=== PATIENT | female | born 1975 | race Caucasian/White ===

== ENCOUNTER 2016-12-01 22:21 | Observation (INO) | payer OTHER ==
[~2016-12-01] VITALS: Ht 152.4 cm; Wt 132.9 kg
[~2016-12-01 22:21] MED LIST: ALBUTEROL2 PUFFS/17 IN; AMOXICILLIN 50500 MG PO; AZITHROMYCIN250 MG PO; BACTRIM DS 8001 TA1 PO; BACTRIM DS 8001 TAB PO; BACTROBAN2% TP; CRESTOR20 MG PO; HYDROCHLOROTH12.5 M1 PO; HYDROCODONE1 TABLET PO; KEFLEX 500MG.500 MG PO; LEVOTHYROXINE0.2 M2 PO; LORTAB 5/500 501 TAB PO; PHENERGAN 25MG.25 M1 PO; SYNTHROID 0.0.125 MG PO; TESSALON PERLE100 MG PO; ULTRAM 50 MG TA50 MG PO; ULTRAM100 MG PO; VICODIN 5/500 T1 TAB PO
[2016-12-01 22:22] VITALS: BP 162/103
[2016-12-01 23:11] LABS: HEMOGLOBIN 11.2 g/dL (12.2-16.2); LYMPH # 2.3 K/mm3 (0.7-4.5); LYMPH % 30.2 % (10-50.0)
[2016-12-01 23:14] LABS: URINE BILIRUBIN - DIPSTICK NEGATIVE (NEG); URINE BLOOD NEGATIVE (NEG)
[2016-12-01 23:23] LABS: AMPHETAMINES/METAMPHETAMINES NEGATIVE ng/mL (<1000)
[2016-12-01 23:35] LABS: BUN 10 mg/dL (7-18)
[2016-12-01 23:38] LABS: GFR (ESTIMATED) 79 ML/MIN (59-)
[2016-12-02 00:29] LABS: VENOUS ABE -2.8 MMOL/L (-2.4-2.3); VENOUS TCO2 25.5 MMOL/L (23-27)
--- NOTE | 2016-12-02 00:37 | Emergency Room Report ---
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 BLOOD PRESSURE HIGH. 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 N Clinical Suspician of Infection? N Mental Status: 1 - Regular (Normal Baseline) Sepsis Risk:Low Sepsis Risk Have you (or family members/close friends) recently traveled outside the [place]? N If Yes, where/when: Have you had exposure to infectious disease within the past month? N TB? Other? Specify: Source RN notes reviewed, family, RN/MD Exam Limitations clinical condition Comment This is a 40-year-old lady brought in the ER by EMS with multiple and various complaints. Around noon time she advised her mother that she did not feel good, her legs were hurting and swollen. The patient started also complaining with left upper extremity pain, and shortly afterwards, while still talking to her mother, she "went out" (had a syncopal episode). Her LEFT upper extremity pain subsided gradually after worse. Approximately one hour prior to arrival the patient had another episode of LEFT upper extremity pain, and shortly afterward she passed out again (2nd time). Mother called the ambulance at this point. BP was 220/110 at home (per EMS), and, as she was still complaining with pain in the left arm, EMS gave her one SL Nitro. They also gave her a DuoNeb as she was "short of breath". Upon arrival to the emergency room the patient's chest pain appears completely resolved, responding to the sublingual nitroglycerin (given by EMS). She is able to answer all questions appropriately, appears alert and oriented x3, without any focal neurological deficit. FSBS is 220 upon arrival. While being taken to the bathroom in a wheelchair, she had another syncopal episode (3rd), witnessed by the staff. The patient was taken back to the examination room shortly afterwards. 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 She is currently on metformin 500 mg 2x/day and levothyroxine. Mother denies any previous, similar, episodes in the past, denies any previous cardiac history. Towards the end of my evaluation the patient appears slightly more somnolent. She has a history of hives (unable to give her ASA). 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 No Angina: Yes PA: No Hypertension? Yes Hyperlipidemia? Yes CHF? No DVT? No PE? No COPD? No Asthma? No Anemia? No GERD? No Gastric ulcers? No GI Bleed? No Hernia? No Thyroid Problems? Yes Hypothyroidism? Yes CVA? No Seizures? No Diabetes? No Renal Insuffiency? No End Stage Renal Disease? No UTI? Yes Stones? Yes BPH? No GB Disease: No Nephritic Syndrome? No Asplenia? No Hepatitis? No Sickle Cell Disease? No Arthritis? No Migraines? Yes Cataracts? No Glaucoma? No MRSA? No HIV? No TB? No Anxiety? Yes Depression? Yes Cancer? 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 MIXER Hx LMP 1-6 Days Ago Family History Family Hx Diabetes Yes CAD Yes Hypertension Yes Hyperlipidemia Yes Cancer Yes TB No Social History Smoking Hx Smoker: Current Every Day Smoker Tobacco: Yes Type Cigarettes Packs/day < 1 Pack Alcohol Alcohol: No Review of Systems All Other Systems Reviewed and Negative Cardiovascular chest pain Musculoskeletal see HPI, muscle pain (LEFT arm pain) Psychiatric/Neurological other (syncope) Physical Exam Vital Signs Vital Signs Date Time Temp Pulse Resp B/P Pulse O2 O2 Flow FiO2 Ox Delivery Rate 12/02 0108 99.1 122 22 164/109 99 2 12/02 0107 99.1 122 22 164/109 99 2 12/02 0028 99.1 122 22 164/109 99 2 12/01 2328 93 16 143/103 99 2 12/01 2308 109 174/90 12/01 2307 106 165/88 12/01 2222 98.8 111 16 162/103 97 General Appearance normal appearance, WD/WN, mild distress Eye Exam - bilateral eye normal exam, bilateral eye PERRL, bilateral eye EOMI, bilateral eye other (normal fundi) Ear, Nose, Throat hearing grossly normal, normal ENT inspection, normal pharynx Neck normal inspection, non-tender, supple, no meningeal signs Respiratory Status Yes: trachea midline, chest symmetrical. No: respiratory distress. Lung Sounds bilateral: normal breath sounds, lungs clear. 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 Yes NIH STROKE SCORE NIH STROKE SCORE Response Value 1a.Level of Consciousness ALERT 0 1b.LOC Questions ANSWERS BOTH CORRECTLY 0 1c.LOC Commands OBEYS BOTH CORRECTLY 0 2 .Best Gaze NORMAL 0 3 .Visual NO VISUAL LOSS 0 4 .Facial Palsy NORMAL 0 5a.Motor Arm Left NO DRIFT 0 5b.Motor Arm Right NO DRIFT 0 6a.Motor Leg Left NO DRIFT 0 6b.Motor Leg Right NO DRIFT 0 7 .Limb Ataxia ABSENT 0 8 .Sensory NORMAL 0 9 .Best Language NO APHASIA 0 10.Dysarthria NORMAL ARTICULATION 0 ED.NIH11 NO NEGLECT 0 Total 0 Treatment Consideration t-PA ordered? No (not medically necessary) Medical Decision Making LABS/Meds/Orders Pt receiving controlled substance in ED? No Comment 00:35 - case d/w Dr Bonds, covering for Dr Castillo, advised of the patient's presentation and findings, agreeable with admission. I will write temporary admission orders, per hospital protocol. Upon patient's arrival to the floor the unit nurse will contact dr. Bonds in order to obtain a full inpatient admission orders. Care transferred to Dr Bonds at this time. DDx: cardiac syncope, vasovagal syncope, hypoglycemia, possible neurocardiogenic syncope, arrythmia, neurological event, etc. The patient appears stable at time of admission, with no new complaints, chest pain free, without any neurological deficits. Results/Orders Laboratory Tests 12/02/16 0028: VBG pH 7.28 L, VBG Total CO2 25.5, VBG O2 Sat (Calc) 91.0 H, VBG Base Excess - 2.8 L, Mixed VBG pCO2 51.9 H, Mixed VBG pO2 67.7 H, Mixed VBG HCO3 24.0 12/02/16 0000: TSH 0.56, Free T4 Index 12.0, Thyroxine (T4) 13.4 H, T3 Uptake 36, Salicylates 2.7 L, Acetaminophen 0 L, Alcohols 0 12/01/16 2345: Lactic Acid 1.8 12/01/16 2255: Opiates Screen NEGATIVE, Urine Methadone Screen NEGATIVE, Barbiturates NEGATIVE, Phencyclidine Screen NEGATIVE, Amphetamines Screen NEGATIVE, Benzodiazepines Screen NEGATIVE, Cocaine Screen NEGATIVE, Marijuana (THC) Screen NEGATIVE, Urine Color YELLOW, Urine Appearance CLEAR, Urine pH 5.5, Ur Specific [place] <= 1.005 , Urine Protein NEGATIVE, Urine Ketones NEGATIVE, Urine Blood NEGATIVE, Urine Nitrate NEGATIVE, Urine Bilirubin NEGATIVE, Urine Urobilinogen 0.2, Ur Leukocyte Esterase NEGATIVE, Urine RBC NONE, Urine WBC NONE, Ur Squamous Epith Cells NONE, Urine Bacteria NONE, Urine Glucose 2+ H 12/01/16 2250: POC Glucose 220 H 12/01/16 2215: Sodium 138, Potassium 3.7, Chloride 103, Carbon Dioxide 27, BUN 10, Creatinine 0.8, Estimated Creat Clear 190, Estimated GFR (MDRD) 79, Glucose 232 H, Calcium 8.2 L, Total Bilirubin 0.3, AST 82 H, ALT 101 H, Alkaline Phosphatase 88, Creatine Kinase 51, CK-MB (CK-2) Rel Index 1.0, CK and CKMB Interp < 0.5, Troponin I < 0.02, B-Natriuretic Peptide 20, Total Protein 7.2, Albumin 3.2 L, Globulin 4.0 H, Albumin/Globulin Ratio 0.8 L, PT 10.7, INR 0.99, APTT 26.6, D- Dimer 145, WBC 7.7, RBC 4.87, Hgb 11.2 L, Hct 37.2, MCV 76.5 L, RDW 16.6, Plt Count 309, MPV 9.0, Gran % 59.1, Gran # 4.5, Lymphocytes % 30.2, Monocytes % 5.1 , Eosinophils % 4.8, Basophils % 0.9, Lymphocytes # 2.3, Monocytes # 0.4, Eosinophils # 0.4, Basophils # 0.1, PUBS MCHC 30.1 L, MCH 23.0 L Current Medication Orders Sig/Debra Start time Last Medication Dose Route Stop Time Status Admin Diagnostic Test (Pha) 1 EACH W/MEALS&HS 12/02 07 UNV FS 01/31 0659 Insulin Human [rDNA See Dose W/MEALS&HS 12/02 07 UNV origin] Insts (1) SC Meclizine HCl 50 MG ONCE ONE 12/02 0015 DC PO 12/02 0016 Aspirin 325 MG ONCE ONE 12/01 2245 CANr PO 12/01 2245 Naloxone HCl 2 MG ONCE ONE 12/01 2245 DC 12/01 IV 12/01 2245 2250 Nitroglycerin 0.4 MG [id number] PRN 12/01 224 AC SL Sodium Chloride 10 ML PRN PRN 12/01 224 AC IV 12/02 224 Naloxone HCl 0 .STK-MED ONE 12/01 2242 DC .ROUTE Dose Instructions: (1)Insulin Human [rDNA origin]: SEE ADMIN CRITERIA FOR LOW INTENSITY SS Orders Procedure Date/time Status DIET-2000 CALORIE ADA 12/02 B Active COMPLETE METABOLIC PANEL 12/02 599 Active CBC WITH AUTO DIFF 12/02 06 Active CARDIAC ENZYMES 12/02 06 Active D-DIMER 12/02 0043 Complete BRAIN NATRIURETIC PEPTIDE 12/02 0043 Complete CARDIAC ENZYMES 12/02 0040 Complete SALICYLATE 12/02 0036 Complete ALCOHOL 12/02 0036 Complete Acetaminophen 12/02 0036 Complete Decision to admit 12/02 0036 Active FREE T4 12/02 0034 Active FREE T3 12/02 003 Active THYROID PANEL 2 (WITH TSH) 12/02 0024 Complete ADMIT PATIENT 12/02 UNK Active PULSE OXIMETRY REQUEST 12/02 UNK Active VITAL SIGNS 12/02 UNK Active SALES REP 12/02 UNK Active POM NURSE BREANNE HOSE ORDER 12/02 UNK Active CODE STATUS 12/02 UNK Active PATIENT ACTIVITY ORDER 12/02 UNK Active Neuro Status, Assess 12/02 UNK Active ARTERIAL BLOOD GAS REQUEST 12/01 2348 Active CULTURE, BLOOD 12/01 2310 Active LACTIC ACID 12/01 2310 Complete ORTHOSTATIC B/P 12/[address] HEAD W/O CONTRAST 12/01 225 Active FINGERSTICK BLOOD SUGAR 12/01 225 Complete URINARY CATHETER INSERT 12/[address] HEAD REQ 12/01 224 Active URINALYSIS/COMPLETE 12/01 2242 Complete FSBS REQUEST BY CARE AREA 12/01 2242 Active DRUG ABUSE SCREEN (10) 12/01 2242 Complete ELECTROCARDIOGRAM REQUEST 12/01 2241 Active CHEST-PORTABLE 12/01 224 Active IV SALINE LOCK 12/[address] DESIGN ENGINEER 12/012 Active PARTIAL THROMBOPLASTIN TIME 12/01 224 Complete PROTHROMBIN TIME 12/01 2242 Complete D-DIMER 12/01 2241 Complete COMPLETE METABOLIC PANEL 12/01 2241 Complete CBC WITH AUTO DIFF 12/012 Complete CARDIAC ENZYMES 12/01 2241 Complete BRAIN NATRIURETIC PEPTIDE 12/01 2241 Complete 12 LEAD EKG-PAM (INITIAL) 12/01 UNK Active 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 of ischemic chgs, no ectopy, no EKG for comparison, non-spec. ST/Twave chgs, ST elevation, ST depression, LBBB, RBBB, ectopy, abnormal Q waves XRAY/CT/US XRAY/CT/US [address] interpretation by discussed w/radiologist Time results known: 2342 CT Results no acute intracranial hemorrhage, no acute brain abnormalities demonstrated - Dr Destiney Robison (see report) XRAY/CT/US 2 XRAY chest XR interpretation by reviewed by me Xray Results no infiltrates, normal lung inflation kaye, mild cardiomegaly Departure Departure Time of Disposition 0041 Disposition Still a Patient Clinical Impression Primary Impression: Syncope Qualifiers: Syncope type: heat syncope Encounter type: initial encounter Qualified Code: T67.1XXA - Heat syncope, initial encounter Secondary Impressions: Chest pain Qualifiers: Chest pain type: unspecified Qualified Code: R07.9 - Chest pain, unspecified Condition STABLE ED [place] [address]10
--- NOTE | 2016-12-02 00:37 | Emergency Room Report ---
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 BLOOD PRESSURE HIGH. 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 N Clinical Suspician of Infection? N Mental Status: 1 - Regular (Normal Baseline) Sepsis Risk:Low Sepsis Risk Have you (or family members/close friends) recently traveled outside the [place]? N If Yes, where/when: Have you had exposure to infectious disease within the past month? N TB? Other? Specify: Source RN notes reviewed, family, RN/MD Exam Limitations clinical condition Comment This is a 40-year-old lady brought in the ER by EMS with multiple and various complaints. Around noon time she advised her mother that she did not feel good, her legs were hurting and swollen. The patient started also complaining with left upper extremity pain, and shortly afterwards, while still talking to her mother, she "went out" (had a syncopal episode). Her LEFT upper extremity pain subsided gradually after worse. Approximately one hour prior to arrival the patient had another episode of LEFT upper extremity pain, and shortly afterward she passed out again (2nd time). Mother called the ambulance at this point. BP was 220/110 at home (per EMS), and, as she was still complaining with pain in the left arm, EMS gave her one SL Nitro. They also gave her a DuoNeb as she was "short of breath". Upon arrival to the emergency room the patient's chest pain appears completely resolved, responding to the sublingual nitroglycerin (given by EMS). She is able to answer all questions appropriately, appears alert and oriented x3, without any focal neurological deficit. FSBS is 220 upon arrival. While being taken to the bathroom in a wheelchair, she had another syncopal episode (3rd), witnessed by the staff. The patient was taken back to the examination room shortly afterwards. 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 She is currently on metformin 500 mg 2x/day and levothyroxine. Mother denies any previous, similar, episodes in the past, denies any previous cardiac history. Towards the end of my evaluation the patient appears slightly more somnolent. She has a history of hives (unable to give her ASA). 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 No Angina: Yes NH: No Hypertension? Yes Hyperlipidemia? Yes CHF? No DVT? No PE? No COPD? No Asthma? No Anemia? No GERD? No Gastric ulcers? No GI Bleed? No Hernia? No Thyroid Problems? Yes Hypothyroidism? Yes CVA? No Seizures? No Diabetes? No Renal Insuffiency? No End Stage Renal Disease? No UTI? Yes Stones? Yes BPH? No GB Disease: No Nephritic Syndrome? No Asplenia? No Hepatitis? No Sickle Cell Disease? No Arthritis? No Migraines? Yes Cataracts? No Glaucoma? No MRSA? No HIV? No TB? No Anxiety? Yes Depression? Yes Cancer? No Immunization Hx DT/Tetanus 5-10 YRS Surgical Hx Previous Surgery?N BIOANALYST Hx LMP 1-6 Days Ago Family History Family Hx Diabetes Yes CAD Yes Hypertension Yes Hyperlipidemia Yes Cancer Yes TB No Social History Smoking Hx Smoker: Current Every Day Smoker Tobacco: Yes Type Cigarettes Packs/day < 1 Pack Alcohol Alcohol: No Review of Systems All Other Systems Reviewed and Negative Cardiovascular chest pain Musculoskeletal see HPI, muscle pain (LEFT arm pain) Psychiatric/Neurological other (syncope) Physical Exam Vital Signs Vital Signs Date Time Temp Pulse Resp B/P Pulse O2 O2 Flow FiO2 Ox Delivery Rate 12/02 0108 99.1 122 22 164/109 99 2 12/02 0107 99.1 122 22 164/109 99 2 12/02 0028 99.1 122 22 164/109 99 2 12/01 2328 93 16 143/103 99 2 12/01 2308 109 174/90 12/01 2307 106 165/88 12/01 2222 98.8 111 16 162/103 97 General Appearance normal appearance, WD/WN, mild distress Eye Exam - bilateral eye normal exam, bilateral eye PERRL, bilateral eye EOMI, bilateral eye other (normal fundi) Ear, Nose, Throat hearing grossly normal, normal ENT inspection, normal pharynx Neck normal inspection, non-tender, supple, no meningeal signs Respiratory Status Yes: trachea midline, chest symmetrical. No: respiratory distress. Lung Sounds bilateral: normal breath sounds, lungs clear. Cardiovascular normal exam, normal peripheral pulses, tachycardia (HR 117), trace peripheral edema Peripheral Pulses Pulses normal Yes Gastrointestinal normal bowel sounds, normal exam, non tender Extremities non-tender, normal range of motion, normal inspection Strength 4 Upper Ext (L), 4 Upper Ext (R), 4 Lower Ext (L), 4 Lower Ext (R) Neurologic alert, equipment monitor phototypesetting II-XII nml as tested, normal exam, no motor/sensory deficits, oriented x 3 Glascow Coma Scale Glascow Coma Scale Response Value EYE response: 4 Spontaneously 4 MOTOR response: 6 OBEYS 6 VERBAL response: 5 Oriented & Converses 5 Total 15 Reflexes Reflexes normal Yes Mental status depressed affect Skin intact, normal color, warm/dry Stroke Score/Tx Stroke Evaluation Initial symptoms indicative of possible stroke? Yes NIH STROKE SCORE NIH STROKE SCORE Response Value 1a.Level of Consciousness ALERT 0 1b.LOC Questions ANSWERS BOTH CORRECTLY 0 1c.LOC Commands OBEYS BOTH CORRECTLY 0 2 .Best Gaze NORMAL 0 3 .Visual NO VISUAL LOSS 0 4 .Facial Palsy NORMAL 0 5a.Motor Arm Left NO DRIFT 0 5b.Motor Arm Right NO DRIFT 0 6a.Motor Leg Left NO DRIFT 0 6b.Motor Leg Right NO DRIFT 0 7 .Limb Ataxia ABSENT 0 8 .Sensory NORMAL 0 9 .Best Language NO APHASIA 0 10.Dysarthria NORMAL ARTICULATION 0 ED.NIH11 NO NEGLECT 0 Total 0 Treatment Consideration t-PA ordered? No (not medically necessary) Medical Decision Making LABS/Meds/Orders Pt receiving controlled substance in ED? No Comment 00:35 - case d/w Dr Bonds, covering for Dr Castillo, advised of the patient's presentation and findings, agreeable with admission. I will write temporary admission orders, per hospital protocol. Upon patient's arrival to the floor the unit nurse will contact dr. Bonds in order to obtain a full inpatient admission orders. Care transferred to Dr Bonds at this time. DDx: cardiac syncope, vasovagal syncope, hypoglycemia, possible neurocardiogenic syncope, arrythmia, neurological event, etc. The patient appears stable at time of admission, with no new complaints, chest pain free, without any neurological deficits. Results/Orders Laboratory Tests 12/02/16 0028: VBG pH 7.28 L, VBG Total CO2 25.5, VBG O2 Sat (Calc) 91.0 H, VBG Base Excess - 2.8 L, Mixed VBG pCO2 51.9 H, Mixed VBG pO2 67.7 H, Mixed VBG HCO3 24.0 12/02/16 0000: TSH 0.56, Free T4 Index 12.0, Thyroxine (T4) 13.4 H, T3 Uptake 36, Salicylates 2.7 L, Acetaminophen 0 L, Alcohols 0 12/01/16 2345: Lactic Acid 1.8 12/01/16 2255: Opiates Screen NEGATIVE, Urine Methadone Screen NEGATIVE, Barbiturates NEGATIVE, Phencyclidine Screen NEGATIVE, Amphetamines Screen NEGATIVE, Benzodiazepines Screen NEGATIVE, Cocaine Screen NEGATIVE, Marijuana (THC) Screen NEGATIVE, Urine Color YELLOW, Urine Appearance CLEAR, Urine pH 5.5, Ur Specific [place] <= 1.005 , Urine Protein NEGATIVE, Urine Ketones NEGATIVE, Urine Blood NEGATIVE, Urine Nitrate NEGATIVE, Urine Bilirubin NEGATIVE, Urine Urobilinogen 0.2, Ur Leukocyte Esterase NEGATIVE, Urine RBC NONE, Urine WBC NONE, Ur Squamous Epith Cells NONE, Urine Bacteria NONE, Urine Glucose 2+ H 12/01/16 2250: POC Glucose 220 H 12/01/16 2215: Sodium 138, Potassium 3.7, Chloride 103, Carbon Dioxide 27, BUN 10, Creatinine 0.8, Estimated Creat Clear 190, Estimated GFR (MDRD) 79, Glucose 232 H, Calcium 8.2 L, Total Bilirubin 0.3, AST 82 H, ALT 101 H, Alkaline Phosphatase 88, Creatine Kinase 51, CK-MB (CK-2) Rel Index 1.0, CK and CKMB Interp < 0.5, Troponin I < 0.02, B-Natriuretic Peptide 20, Total Protein 7.2, Albumin 3.2 L, Globulin 4.0 H, Albumin/Globulin Ratio 0.8 L, PT 10.7, INR 0.99, APTT 26.6, D- Dimer 145, WBC 7.7, RBC 4.87, Hgb 11.2 L, Hct 37.2, MCV 76.5 L, RDW 16.6, Plt Count 309, MPV 9.0, Gran % 59.1, Gran # 4.5, Lymphocytes % 30.2, Monocytes % 5.1 , Eosinophils % 4.8, Basophils % 0.9, Lymphocytes # 2.3, Monocytes # 0.4, Eosinophils # 0.4, Basophils # 0.1, PUBS MCHC 30.1 L, MCH 23.0 L Current Medication Orders Sig/Debra Start time Last Medication Dose Route Stop Time Status Admin Diagnostic Test (Pha) 1 EACH W/MEALS&HS 12/02 07 UNV FS 01/31 0659 Insulin Human [rDNA See Dose W/MEALS&HS 12/02 07 UNV origin] Insts (1) SC Meclizine HCl 50 MG ONCE ONE 12/02 0015 DC PO 12/02 0016 Aspirin 325 MG ONCE ONE 12/01 2245 CANr PO 12/01 2245 Naloxone HCl 2 MG ONCE ONE 12/01 2245 DC 12/01 IV 12/01 2245 2250 Nitroglycerin 0.4 MG [id number] PRN 12/01 224 AC SL Sodium Chloride 10 ML PRN PRN 12/01 224 AC IV 12/02 224 Naloxone HCl 0 .STK-MED ONE 12/01 2242 DC .ROUTE Dose Instructions: (1)Insulin Human [rDNA origin]: SEE ADMIN CRITERIA FOR LOW INTENSITY SS Orders Procedure Date/time Status DIET-2000 CALORIE ADA 12/02 B Active COMPLETE METABOLIC PANEL 12/02 599 Active CBC WITH AUTO DIFF 12/02 06 Active CARDIAC ENZYMES 12/02 06 Active D-DIMER 12/02 0043 Complete BRAIN NATRIURETIC PEPTIDE 12/02 0043 Complete CARDIAC ENZYMES 12/02 0040 Complete SALICYLATE 12/02 0036 Complete ALCOHOL 12/02 0036 Complete Acetaminophen 12/02 0036 Complete Decision to admit 12/02 0036 Active FREE T4 12/02 0034 Active FREE T3 12/02 003 Active THYROID PANEL 2 (WITH TSH) 12/02 0024 Complete ADMIT PATIENT 12/02 UNK Active PULSE OXIMETRY REQUEST 12/02 UNK Active VITAL SIGNS 12/02 UNK Active DIRECTOR OF REGIONAL SALES 12/02 UNK Active POM NURSE BREANNE HOSE ORDER 12/02 UNK Active CODE STATUS 12/02 UNK Active PATIENT ACTIVITY ORDER 12/02 UNK Active Neuro Status, Assess 12/02 UNK Active ARTERIAL BLOOD GAS REQUEST 12/01 2348 Active CULTURE, BLOOD 12/01 2310 Active LACTIC ACID 12/01 2310 Complete ORTHOSTATIC B/P 12/[address] HEAD W/O CONTRAST 12/01 225 Active FINGERSTICK BLOOD SUGAR 12/01 225 Complete URINARY CATHETER INSERT 12/[address] HEAD REQ 12/01 224 Active URINALYSIS/COMPLETE 12/01 2242 Complete FSBS REQUEST BY CARE AREA 12/01 2242 Active DRUG ABUSE SCREEN (10) 12/01 2242 Complete ELECTROCARDIOGRAM REQUEST 12/01 2241 Active CHEST-PORTABLE 12/01 224 Active IV SALINE LOCK 12/[address] INSPECTOR 12/012 Active PARTIAL THROMBOPLASTIN TIME 12/01 224 Complete PROTHROMBIN TIME 12/01 2242 Complete D-DIMER 12/01 2241 Complete COMPLETE METABOLIC PANEL 12/01 2241 Complete CBC WITH AUTO DIFF 12/012 Complete CARDIAC ENZYMES 12/01 2241 Complete BRAIN NATRIURETIC PEPTIDE 12/01 2241 Complete 12 LEAD EKG-PAM (INITIAL) 12/01 UNK Active 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 of ischemic chgs, no ectopy, no EKG for comparison, non-spec. ST/Twave chgs, ST elevation, ST depression, LBBB, RBBB, ectopy, abnormal Q waves XRAY/CT/US XRAY/CT/US [address] interpretation by discussed w/radiologist Time results known: 2342 CT Results no acute intracranial hemorrhage, no acute brain abnormalities demonstrated - Dr Destiney Robison (see report) XRAY/CT/US 2 XRAY chest XR interpretation by reviewed by me Xray Results no infiltrates, normal lung inflation kaye, mild cardiomegaly Departure Departure Time of Disposition 0041 Disposition Still a Patient Clinical Impression Primary Impression: Syncope Qualifiers: Syncope type: heat syncope Encounter type: initial encounter Qualified Code: T67.1XXA - Heat syncope, initial encounter Secondary Impressions: Chest pain Qualifiers: Chest pain type: unspecified Qualified Code: R07.9 - Chest pain, unspecified Condition STABLE ED Critical Care Critical Care No at 0510
[2016-12-02 01:23] VITALS: BP 172/107
[2016-12-02 01:58] VITALS: BP 172/107
[2016-12-02 02:38] VITALS: BP 170/107
[2016-12-02] MEDS ORDERED: METFORMIN 500M500 M1 PO (04:45)
--- NOTE | 2016-12-02 05:17 | RADIOLOGY REPORT PS360 ---
CHEST-PORTABLE HISTORY: syncope ORDERING PHYSICIAN: Rubin Mary MD PATIENT AGE: 40 years COMPARISON: 04/25/2016 FINDINGS: The cardiomediastinal silhouette and pulmonary vascularity are within normal limits. The lungs are clear without infiltrates, suspicious nodules, or pleural effusions. No acute bony abnormalities. IMPRESSION: Negative chest, no acute finding
--- NOTE | 2016-12-02 06:19 | RADIOLOGY REPORT PS360 ---
CT HEAD W/O CONTRAST HISTORY: SYNCOPE ORDERING PHYSICIAN: Rubin Mary MD PATIENT AGE: 40 years COMPARISON: 07/17/2014 TECHNIQUE: Axial images obtained without contrast. Brain and bone windows reviewed. FINDINGS: No midline shift, mass effect, intracranial hemorrhage, hydrocephalus, or extra-axial fluid collection is evident. The calvarium has an unremarkable appearance. No mastoid effusion. The visualized paranasal sinuses are unremarkable. IMPRESSION: No acute intracranial findings
--- OUTSIDE RECORDS SUMMARY | 2017-01-09 22:15 | External Medical Summary Rpt ---
Author Author , MALIA Sterling MALIA Address Unknown Phone [email or web address] Care Team Providers Care Hand Former Name Role Phone [facility] Unavailable Unavailable SERVICE, [facility] Unavailable Unavailable SERVICE, [facility] Unavailable Unavailable [place], [facility] [place] [facility] Unavailable Unavailable [place], [facility] [place] LAZARO Quinn, LAZARO Hickey Unavailable Unavailable G LAZARO Quinn, LAZARO Hickey Unavailable Unavailable G LAZARO TOURE Unavailable Unavailable DANIELLE SHABNAM YUE, Unavailable Unavailable [facility] Unavailable Unavailable [facility], [facility] Un[facility] Unavailable [facility]ING [facility], [facility] Purpose Continuity of Care Document - 05-31-2013 through 2016 Problems Code Diagnosis DOS Provider Status E039 HYPOTHYROID 08-04-2015 [facility]M PHYSICIANS UNSPECIFIED LA [id number] PAIN IN 03-27-2015 [place] [facility] [id number] UNS INJURY 03-27-2015 [place] RT LOWER MEDICAL LEG INITIAL IMAGING ASS ENCOUNTER 2449 UNSPECIFIED 10-20-2014 [facility] HYPOTHYROID ISM 06147 OVERWEIGHT 10-20-2014 [facility] 86853 OTHER 10-20-2014 [facility] ABNORMAL [facility] GLUCOSE 7823 EDEMA 09-26-2014 [facility] PHYSICI[facility] [place] 7804 DIZZINESS 07-17-2014 [facility] GIDDINESS SERVICE 7840 HEADACHE 07-17-2014 [facility] 50939 OTHER 07-17-2014 [place] DYSPNEA [facility] [place] [address] CHEST PAIN 07-17-2014 [place] UNSPECIFIED [facility] 03729 NAUSEA WITH 07-17-2014 [facility] VOMIT[facility] AMBULANCE SERVICE 44485 HORDEOLUM 06-01-2013 LAZARO Quinn INTERNUM 2083 CELLULITIS 06-01-2013 COMBINED AND ABSCESS PHYSICIANS OF ORAL LA SOFT TISSUES 2953 CELLULITIS 05-31-2013 LAZARO Quinn AND ABSCESS OF OTHER SPECIFIED SITE Medications Na ND Rx Da Fi Fi Am Da Di Ph RX Ph St me C No te ll ll ou ys ag ar # ys at rm s nt no ma ic us Or Da si cy ia de te s n re d LE 00 06 08 30 30 00 WA Ac VO 78 -3 -0 .0 00 L- ti TH 15 0- 4- 00 07 MA ve YR 18 20 20 44 RT OX 99 17 17 02 IN 2 50 PH E AR 20 MA 0 CY MC G #5 TA 91 BL ET LE 00 05 06 30 30 00 WA Ac VO 78 -2 -2 .0 00 L- ti TH 15 4- 3- 00 07 MA ve YR 18 20 20 44 RT OX 99 17 17 02 IN 2 50 PH E AR 20 MA 0 CY MC G #5 TA 91 BL ET LE 00 03 04 30 30 00 WA Ac VO 78 -1 -1 .0 00 L- ti TH 15 1- 4- 00 07 MA ve YR 18 20 20 44 RT OX 99 17 17 02 IN 2 50 PH E AR 20 MA 0 CY MC G #5 TA 91 BL ET CY 68 01 02 10 10 00 WA Ac CL 64 -2 -2 .0 00 L- ti OB 50 3- 4- 00 07 MA ve EN 51 20 20 46 RT ZA 89 17 17 63 [place] 0 46 PH IN AR E MA 10 CY MG #5 91 TA BL ET IB 68 01 02 40 10 00 WA Ac UP 64 -2 -2 .0 00 L- ti RO 50 3- 4- 00 07 MA ve FE 53 20 20 46 RT N 05 17 17 63 60 9 52 PH 0 AR MG MA CY TA BL #5 ET 91 LE 00 01 02 30 30 00 WA Ac VO 78 -1 -1 .0 00 L- ti TH 15 8- 7- 00 07 MA ve YR 18 20 20 44 RT OX 99 17 17 02 IN 2 50 PH E AR 20 MA 0 CY MC G #5 TA 91 BL ET HY 00 12 01 [address] 37 -2 -2 .0 00 L- ti OC 80 0- 0- 00 07 MA ve HL 81 20 20 45 RT OR 00 16 17 96 OT 5 31 PH HI AR AZ MA ID CY E 12 #5 .5 91 MG CP Results Labs Lab Lab Date Result Refere Interp Status Commen Order Detail nces retati t Range on Hemoglobin A1c in Blood (12-30-2016 10:25) Hemoglo 12-30-2 8.1 % 0.0% High complet bin A1c 017 - ed in 10:25 7.0% Blood Drugs identified in Urine by Screen method (12-01-2016 22:55) Ampheta NEGATIV <1000 complet mine 017 E ed [Presen 22:55 ce] in Urine by Screen method 11-Hydr NEGATIV <50 complet oxy 017 E ed delta-9 22:55 tetrahy drocann abinol [Presen ce] in Unspeci fied specime n Procedures Procedure DOS [place] [address] COMBINED COMBINED THYROID 6 PHYSICIAN PHYSICIAN STIMULATI [place] [address] COMBINED COMBINED THYROID 6 PHYSICIAN PHYSICIAN STIMULATI S LA S LA NG HORMONE TSH RADIOLOGI 18959 [place] [facility] 5 MEDICAL YUE EXAMINATI IMAGING ON KNEE 3 ASS VIEWS COMPREHEN 86037 COMBINED COMBINED SIVE 5 PHYSICIAN PHYSICIAN METABOLIC S LA S LA PANEL AMB A0427 [facility] SERVICE 5 AMBULANCE AMBULANCE ALS SERVICE SERVICE [place] [address] [place] [facility] HEAD/BRAI 5 MEDICAL YUE N W/O IMAGING CONTRAST ASS MATERIAL RADIOLOGI 77069 [place] [facility] C 5 MEDICAL YUE EXAMINATI IMAGING ON CHEST ASS SINGLE VIEW FRONTAL GROUND A0425 [facility] MILEAGE 5 AMBULANCE AMBULANCE PER SERVICE SERVICE STATUTE MILE COMPREHEN 99072 COMBINED COMBINED SIVE 5 PHYSICIAN PHYSICIAN [place] [address] COMBINED COMBINED FREE 5 PHYSICIAN PHYSICIAN THYROXINE S LA S LA CUL BACT 32190 COMBIN[facility] COMBINED XCPT 4 PHYSICIAN PHYSICIAN URINE S LA S LA BLOOD/STO OL AEROBIC ISOL SCREENING 00684 LAZARO Hickey TEST 4 G G VISUAL ACUITY QUANTITAT DANE BILAT Encounters Encounter Start End Date Code Location Performer Type Date OFFICE 37799 [facility] LAZARO CARDENAS 5 5 CARE DANIELLE T VISIT ASSOCIATE 15 S MINUTES OFFICE 16388 LAZARO Hickey OUTPATIEN 4 4 G G T VISIT 10 MINUTES OFFICE 67821 LAZARO Hickey OUTPATIEN 4 4 G G T VISIT 15 MINUTES
--- OUTSIDE RECORDS SUMMARY | 2017-01-09 22:15 | External Medical Summary Rpt ---
Author Author , MALIA Sterling MALIA Address Unknown Phone [email or web address] Care Team Providers Care Clinical Nurse Leader Name Role Phone [facility] Unavailable Unavailable SERVICE, [facility] Unavailable Unavailable SERVICE, [facility] Unavailable [facility]available [place], [facility] [place] [facility] Unavailable Unavailable [place], [facility] [place] LAZARO Quinn, LAZARO Hickey Unavailable Unavailable G LAZARO Quinn, LAZARO Hickey Unavailable Unavailable G LAZARO TOURE Unavailable Unavailable DANIELLE SHABNAM YUE, Unavailable Unavailable [facility] Unavailable Unavailable ASSOC[facility]ATES, [facility] Unavailable Unavailable IMAGING ASS, [facility] Purpose Continuity of Care Document - 05-31-2013 through 2016 Problems Code Diagnosis DOS Provider Status E039 HYPOTHYROID 08-04-2015 [facility]M PHYSICIANS UNSPECIFIED LA [id number] PAIN IN 03-27-2015 [facility] [id number] UNS INJURY 03-27-2015 [facility] RT LOWER MEDICAL LEG INITIAL IMAGING ASS ENCOUNTER 2449 UNSPECIFIED 10-20-2014 [facility] HYPOTHYROID ISM 31487 OVERWEIGHT 10-20-2014 [facility] 24833 OTHER 10-20-2014 [facility] ABNORMAL ASSOCIATES GLUCOSE 7823 EDEMA 09-26-2014 [facility] PHYSICI[facility] [place] 7804 DIZZINESS 07-17-2014 [facility] GIDDINESS SERVICE 7840 HEADACHE 07-17-2014 [facility] 59780 OTHER 07-17-2014 [facility] DYSPNEA [facility] [place] [address] CHEST PAIN 07-17-2014 [facility] UNSPECIFIED [facility]ING [facility] 90897 NAUSEA WITH 07-17-2014 [employer] VOMITING AMBULANCE SERVICE 36117 HORDEOLUM 06-01-2013 LAZARO Quinn INTERNUM 9983 CELLULITIS 06-01-2013 COMBINED AND ABSCESS PHYSICIANS OF ORAL LA SOFT TISSUES 7983 CELLULITIS 05-31-2013 LAZARO Quinn AND ABSCESS OF [...] 46 RT ZA 89 17 17 63 [place] 0 46 PH IN AR E MA [...] DOS [place] [address] COMBINED COMBINED THYROID 6 PHYSICIAN PHYSICIAN STIMULATI [place] [address] COMBINED COMBINED THYROID 6 PHYSICIAN PHYSICIAN STIMULATI S LA S LA NG HORMONE TSH RADIOLOGI 68055 [facility] 5 MEDICAL YUE EXAMINATI IMAGING ON KNEE 3 ASS VIEWS COMPREHEN 62819 COMBINED COMBINED SIVE 5 PHYSICIAN PHYSICIAN METABOLIC S LA S LA PANEL AMB A0427 [facility] SERVICE 5 AMBULANCE AMBULANCE ALS SERVICE SERVICE [place] [address] [facility] HEAD/BRAI 5 MEDICAL YUE N W/O IMAGING CONTRAST ASS MATERIAL RADIOLOGI 32142 [facility] C 5 MEDICAL YUE EXAMINATI IMAGING ON CHEST ASS SINGLE VIEW FRONTAL GROUND A0425 [facility] MILEAGE 5 AMBULANCE AMBULANCE PER SERVICE SERVICE STATUTE MILE COMPREHEN 61772 COMBINED COMBINED SIVE 5 PHYSICIAN PHYSICIAN [place] [address] COMBINED COMBINED FREE 5 PHYSICIAN PHYSICIAN THYROXINE S LA S LA CUL BACT 26114 COMBINED COMBINED XCPT 4 PHYSICIAN PHYSICIAN URINE S LA S LA BLOOD/STO OL AEROBIC ISOL SCREENING 40116 LAZARO Hickey TEST 4 G G VISUAL ACUITY QUANTITAT DANE BILAT Encounters Encounter Start End Date Code Location Performer Type Date OFFICE 31550 FAMILY LAZARO CARDENAS 5 5 CARE DANIELLE T VISIT ASSOCIATE 15 S MINUTES OFFICE 28361 LAZARO Hickey OUTPATIEN 4 4 G G T VISIT 10 MINUTES OFFICE 93031 LAZARO Hickey OUTPATIEN 4 4 G G T VISIT 15 MINUTES
--- OUTSIDE RECORDS SUMMARY | 2017-01-09 22:16 | External Medical Summary Rpt ---
Demographics Preferred Language Faroese Marital Status Unknown Hinduism Affiliation Unknown Race Unknown Ethnic Group Unknown Author Author MALIA Address Unknown Phone Immunization No patient found.
--- OUTSIDE RECORDS SUMMARY | 2017-01-09 22:16 | External Medical Summary Rpt ---
Demographics Preferred Language Khmer Marital Status Unknown Buddhist Affiliation Unknown Race Unknown Ethnic Group Unknown Author Author MALIA Address Unknown Phone Immunization No patient found.
--- OUTSIDE RECORDS SUMMARY | 2017-01-09 22:16 | External Medical Summary Rpt ---
Author Author , MALIA Sterling MALIA Address Unknown Phone [email or web address] Care Team Providers Care Spa Supervisor Name Role Phone [facility] Unavailable Unavailable SERVICE, [facility] Unavailable Unavailable SERVICE, [facility] Unavailable Unavailable [place], [facility] [place] [facility] Unavailable Unavailable [place], [facility] [place] LAZARO Quinn, LAZARO J Unavailable Unavailable G LAZARO Quinn, LAZARO Hickey Unavailable Unavailable G LAZARO SANTOS, LAZARO Unavailable Unavailable DANIELLE SHABNAM YUE, Unavailable Unavailable [facility] Unavailable Unavailable [facility], [facility] Unavailable Unavailable [facility]ING [facility], [facility] Purpose Continuity of Care Document - 05-31-2013 through 2016 Problems Code Diagnosis DOS Provider Status E039 HYPOTHYROID 08-04-2015 [facility] PHYSICIANS UNSPECIFIED LA [id number] PAIN IN 03-27-2015 [facility] [id number] UNS INJURY 03-27-2015 [facility] IN[facility]IAL [facility] ASS ENCOUNTER 2449 UNSPECIFIED 10-20-2014 [facility] HYPOTHYROID ISM 89963 OVERWEIGHT 10-20-2014 [facility] 35933 OTHER 10-20-2014 [facility] ABNORMAL ASSOCIATES GLUCOSE 7823 EDEMA 09-26-2014 [facility]IC[facility] [place] 7804 DIZZINESS 07-17-2014 [facility] GIDDINESS SERVICE 7840 HEADACHE 07-17-2014 [facility] 06467 OTHER 07-17-2014 [facility] [place] [address] CHEST PAIN 07-17-2014 [facility] 28315 NAUSEA WITH 07-17-2014 [facility] 45555 HORDEOLUM 06-01-2013 LAZARO Quinn INTERNUM 5283 CELLULITIS 06-01-2013 [facility] AND ABSCESS PHYSICIANS OF ORAL LA SOFT TISSUES 6416 CELLULITIS 05-31-2013 LAZARO Quinn AND ABSCESS OF [...] LE 00 03 04 30 30 00 OR Ac VO 78 -1 -1 .0 00 L- ti TH 15 1- 4- 00 07 MA ve YR 18 20 20 44 RT OX 99 17 17 02 IN 2 50 PH E AR 20 MA 0 CY MC G #5 TA 91 BL ET CY 68 01 02 10 10 00 OR Ac CL 64 -2 -2 .0 00 L- ti OB 50 3- 4- 00 07 MA ve EN 51 20 20 46 RT ZA 89 17 17 63 NE 0 46 PH IN AR E MA 10 CY MG #5 91 TA BL ET IB 68 01 02 40 10 00 OR Ac UP 64 -2 -2 .0 00 L- ti RO 50 3- 4- 00 07 MA ve FE 53 20 20 46 RT N 05 17 17 63 60 9 52 PH 0 AR MG MA CY TA BL #5 ET 91 LE 00 01 02 30 30 00 OR Ac VO 78 -1 -1 .0 00 L- ti TH 15 8- 7- 00 07 MA ve YR 18 20 20 44 RT OX 99 17 17 02 IN 2 50 PH E AR 20 MA 0 CY MC G #5 TA 91 BL ET HY 00 12 01 10 [address] 37 -2 -2 .0 00 L- ti OC 80 0- 0- 00 07 MA ve HL 81 20 20 45 RT OR 00 16 17 96 OT 5 31 PH HI AR AZ MA ID CY E 12 #5 .5 91 MG CP Procedures Procedure DOS [place] [address] COMBINED COMBINED THYROID 6 PHYSICIAN PHYSICIAN [place]ULAT[place] [address] COMBINED COMBINED THYROID 6 PHYSICIAN PHYSICIAN STIMULATI S LA S LA NG HORMONE TSH RADIOLOGI [address] [place] [address] MEDICAL YUE EXAMINATI IMAGING ON KNEE 3 ASS VIEWS COMPREHEN 71541 COMBINED COMBINED SIVE 5 PHYSICIAN PHYSICIAN METABOLIC S LA S LA PANEL GROUND A0425 [facility] MILEAGE 5 AMBULANCE AMBULANCE PER SERVICE SERVICE STATUTE MILE AMB A0427 [facility] SERVICE 5 AMBULANCE AMBULANCE ALS SERVICE SERVICE [place] [address] [place] [facility] HEAD/BRAI 5 MEDICAL YUE N W/O IMAGING CONTRAST ASS MATERIAL RADIOLOGI 80717 [place] [facility] C 5 MEDICAL YUE EXAMINATI IMAGING ON CHE[place] [address] COMBINED COMBINED FREE 5 PHYSICIAN PHYSICIAN THYROXINE S LA S LA COMPREHEN 70301 COMBINED COMBINED SIVE 5 PHYSICIAN PHYSICIAN METABOLIC S LA S LA PANEL CUL BACT 86329 COMBINED COMBINED XCPT 4 PHYSICIAN PHYSICIAN URINE S LA S LA BLOOD/STO OL AEROBIC ISOL SCREENING 15625 LAZARO Hickey TEST 4 G G VISUAL ACUITY QUANTITAT DANE BILAT Encounters Encounter Start End Date Code Location Performer Type Date OFFICE 12701 FAMILY LAZARO CARDENAS 5 5 CARE DANIELLE T VISIT ASSOCIATE 15 S MINUTES OFFICE 55271 LAZARO CARDENAS 4 4 G G T VISIT 10 MINUTES OFFICE 73448 LAZARO CARDENAS 4 4 G G T VISIT 15 MINUTES
--- OUTSIDE RECORDS SUMMARY | 2017-01-09 22:16 | External Medical Summary Rpt ---
Author Author , MALIA Sterling MALIA Address Unknown Phone [email or web address] Care Team Providers Care Salary Manager Name Role Phone [facility] Unavailable Unavailable [...] CARE Unavailable Unavailable ASSOCIATES, [facility] Unavailable Unavailable IMAGING ASS, [facility] Purpose Continuity of Care Document - 05-31-2013 through 2016 Problems Code Diagnosis DOS Provider Status E039 HYPOTHYROID 08-04-2015 COMBINED ISM PHYSICIANS UNSPECIFIED LA [id number] PAIN IN 03-27-2015 [facility] [facility] [id number] UNS INJURY 03-27-2015 [place] [facility] IN[facility] ENCOUNTER 2449 UNSPECIFIED 10-20-2014 [facility] HYPOTHYROID ISM 57999 OVERWEIGHT 10-20-2014 [facility] 81036 OTHER 10-20-2014 [facility] ABNORMAL ASSOCIATES GLUCOSE 7823 EDEMA 09-26-2014 [facility] PH[facility]IC[facility] [place] 7804 DIZZINESS 07-17-2014 [facility] GIDDINESS SERVICE 7840 HEADACHE 07-17-2014 [facility] 42547 OTHER 07-17-2014 [facility] [facility] [place] [address] CHEST PAIN 07-17-2014 [place] [facility] 59145 NAUSEA WITH 07-17-2014 [facility] SERVICE 94211 HORDEOLUM 06-01-2013 LAZARO Quinn INTERNUM 5283 CELLULITIS 06-01-2013 COM[facility]ED AND ABSCESS PHYSICIANS OF ORAL LA SOFT TISSUES 7754 CELLULITIS 05-31-2013 LAZARO Quinn AND ABSCESS OF [...] LE 00 03 04 30 30 00 GA Ac VO 78 -1 -1 .0 00 L- ti TH 15 1- 4- 00 07 MA ve YR 18 20 20 44 RT OX 99 17 17 02 IN 2 50 PH E AR 20 MA 0 CY MC G #5 TA 91 BL ET CY 68 01 02 10 10 00 GA Ac CL 64 -2 -2 .0 00 L- ti OB 50 3- 4- 00 07 MA ve EN 51 20 20 46 RT ZA 89 17 17 63 [place] 0 46 PH IN AR E MA 10 CY MG #5 91 TA BL ET IB 68 01 02 40 10 00 GA Ac UP 64 -2 -2 .0 00 L- ti RO 50 3- 4- 00 07 MA ve FE 53 20 20 46 RT N 05 17 17 63 60 9 52 PH 0 AR MG MA CY TA BL #5 ET 91 LE 00 01 02 30 30 00 GA Ac VO 78 -1 -1 .0 00 L- ti TH 15 8- 7- 00 07 MA ve YR 18 20 20 44 RT OX 99 17 17 02 IN 2 50 PH E AR 20 MA 0 CY MC G #5 TA 91 BL ET HY 00 12 01 [address] 37 -2 -2 .0 00 L- ti OC 80 0- 0- 00 07 MA ve HL 81 20 20 45 RT OR 00 16 17 96 OT 5 31 PH HI AR AZ MA ID CY E 12 #5 .5 91 MG CP Procedures Procedure DOS [place] [address] COMBINED COMBINED THYROID 6 PHYSICIAN PHYSICIAN ST[place]ULAT[place] [address] COMBINED COMBINED THYROID 6 PHYSICIAN PHYSICIAN STIMULATI S LA S LA NG HORMONE TSH RADIOLOGI [address] [place] [address] MEDICAL YUE EXAMINATI IMAGING ON KNEE 3 ASS VIEWS COMPREHEN 48324 COMBINED COMBINED SIVE 5 PHYSICIAN PHYSICIAN METABOLIC S LA S LA PANEL GROUND A0425 [facility] MILEAGE 5 AMBULANCE AMBULANCE PER SERVICE SERVICE STATUTE MILE AMB A0427 [facility] SERVICE 5 AMBULANCE AMBULANCE ALS SERVICE SERVICE [place]ERGENCY [place] [address] [place] [facility] HEAD/BRAI 5 MEDICAL YUE N W/O IMAGING CONTRAST ASS MATERIAL RADIOLOGI 15662 [place] [facility] C 5 MEDICAL YUE EXAMINATI IMAGING ON [place] [address] COMBINED COMBINED FREE 5 PHYSICIAN PHYSICIAN THYROXINE S LA S LA COMPREHEN 40560 COMBINED COMBINED SIVE 5 PHYSICIAN PHYSICIAN METABOLIC S LA S LA PANEL CUL BACT 42378 COMBINED COMBINED XCPT 4 PHYSICIAN PHYSICIAN URINE S LA S LA BLOOD/STO OL AEROBIC ISOL SCREENING 94219 LAZARO Hickey TEST 4 G G VISUAL ACUITY QUANTITAT DANE BILAT Encounters Encounter Start End Date Code Location Performer Type Date OFFICE 67364 FAMILY LAZARO CARDENAS 5 5 CARE DANIELLE T VISIT ASSOCIATE 15 S MINUTES OFFICE 87488 LAZARO CARDENAS 4 4 G G T VISIT 10 MINUTES OFFICE 74910 LAZARO CARDENAS 4 4 G G T VISIT 15 MINUTES
--- OUTSIDE RECORDS SUMMARY | 2017-01-09 22:32 | External Medical Summary Rpt ---
Author Author , MALIA Sterling MALIA Address Unknown Phone [email or web address] Care Team Providers Care Wet Machine Cutter Name Role Phone [facility] Unavailable Unavailable SERVICE, [facility] SERVICE [facility] Unavailable Unavailable SERVICE, [facility] Unavailable Unavailable [place], [facility] [place] [facility] Unavailable Unavailable [place], [facility] [place] LAZARO Quinn, LAZARO Hickey Unavailable Unavailable G LAZARO Quinn, LAZARO Hickey Unavailable Unavailable G LAZARO TOURE Unavailable Unavailable DANIELLE SHABNAM YUE, Unavailable Unavailable [facility] Unavailable Unavailable ASSOCIATES, [facility] Unavailable Unavailable IMAGING ASS, [facility] Purpose Continuity of Care Document - 05-31-2013 through 2016 Problems Code Diagnosis DOS Provider Status E039 HYPOTHYROID 08-04-2015 COMBINED ISM PHYSICIANS UNSPECIFIED LA [id number] PAIN IN 03-27-2015 [place] [facility] [id number] UNS INJURY 03-27-2015 [place] [facility]ICAL LEG INITIAL IMAGING ASS ENCOUNTER 2449 UNSPECIFIED 10-20-2014 [facility] HYPOTHYROID ISM 73318 OVERWEIGHT 10-20-2014 [facility] 58797 OTHER 10-20-2014 [facility] ABNORMAL ASSOCIATES GLUCOSE 7823 EDEMA 09-26-2014 [facility] PH[facility]ICI[facility] [place] 7804 DIZZINESS 07-17-2014 [facility] GIDDINESS SERVICE 7840 HEADACHE 07-17-2014 [facility] 08403 OTHER 07-17-2014 [facility] [place] [facility] [place] [address] CHEST PAIN 07-17-2014 [place] UNSPECIFIED [facility] 03818 NAUSEA WITH 07-17-2014 [employer] VOMITING AMBULANCE SERVICE 70642 HORDEOLUM 06-01-2013 LAZARO Quinn INTERNUM 0183 CELLULITIS 06-01-2013 [facility] AND ABSCESS PHYSICIANS OF ORAL LA SOFT TISSUES 9535 CELLULITIS 05-31-2013 LAZARO Quinn AND ABSCESS OF [...] 46 RT ZA 89 17 17 63 FL 0 46 PH IN AR E MA [...] DOS [place] [address] COMBINED COMBINED THYROID 6 PHYSICIAN PHYSICIAN ST[place]ULATI [place] [address] COMBINED COMBINED THYROID 6 PHYSICIAN PHYSICIAN STIMULATI S LA S LA NG HORMONE TSH RADIOLOGI 36820 [place] SHAB[facility] C 5 MEDICAL YUE EXAMINATI IMAGING ON KNEE 3 ASS VIEWS COMPREHEN 33729 COMBINED COMBINED SIVE 5 PHYSICIAN PHYSICIAN METABOLIC S LA S LA PANEL AMB A0427 [facility] SERVICE 5 AMBULANCE AMBULANCE ALS SERVICE SERVICE [place] [address] [place] [facility] HEAD/BRAI 5 MEDICAL YUE N W/O IMAGING CONTRAST ASS MATERIAL RADIOLOGI 24127 [place] SH[facility] C 5 MEDICAL YUE EXAMINATI IMAGING ON CHEST ASS SINGLE VIEW FRONTAL GROUND A0425 [facility] MILEAGE 5 AMBULANCE AMBULANCE PER SERVICE SERVICE STATUTE MILE COMPREHEN 47658 COMBINED COMBINED SIVE 5 PHYSICIAN PHYSICIAN [place] [address] COMBINED COMBINED FREE 5 PHYSICIAN PHYSICIAN THYROXINE S LA S LA CUL BACT 34662 COMBINED COMBINED XCPT 4 PHYSICIAN PHYSICIAN URINE S LA S LA BLOOD/STO OL AEROBIC ISOL SCREENING 68192 LAZARO Hickey TEST 4 G G VISUAL ACUITY QUANTITAT DANE BILAT Encounters Encounter Start End Date Code Location Performer Type Date OFFICE 56966 FAMILY LAZARO CARDENAS 5 5 CARE DANIELLE T VISIT ASSOCIATE 15 S MINUTES OFFICE 57451 LAZARO Hickey OUTPATIEN 4 4 G G T VISIT 10 MINUTES OFFICE 52913 LAZARO Hickey OUTPATIEN 4 4 G G T VISIT 15 MINUTES
--- OUTSIDE RECORDS SUMMARY | 2017-01-09 22:32 | External Medical Summary Rpt ---
Author Author , MALIA Sterling MALIA Address Unknown Phone [email or web address] Care Team Providers Care Technology Intern Name Role Phone [facility] Unavailable Unavailable SERVICE, [facility]UL[facility] SERVICE [facility] Unavailable Unavailable SERVICE, [facility] Unavailable Unavailable [place], [facility] [place] [facility] Unavailable Unavailable [place], [facility] [place] LAZARO Quinn, LAZARO Hickey Unavailable Unavailable G LAZARO Quinn, LAZARO Hickey Unavailable Unavailable G LAZARO TOURE Unavailable Unavailable DANIELLE SHABNAM YUE, Unavailable Unavailable [facility] Unavailable Unavailable ASSOCIATES, [facility] Unavailable Unavailable IMAGING ASS, [facility] Purpose Continuity of Care Document - 05-31-2013 through 2016 Problems Code Diagnosis DOS Provider Status E039 HYPOTHYROID 08-04-2015 COM[facility] PHYSICIANS UNSPECIFIED LA [id number] PAIN IN 03-27-2015 [facility] [id number] UNS INJURY 03-27-2015 [place] LEG IN[facility]IAL IM[facility]ING ASS ENCOUNTER 2449 UNSPECIFIED 10-20-2014 [facility] HYPOTHYROID ISM 29326 OVERWEIGHT 10-20-2014 [facility] 56626 OTHER 10-20-2014 [facility] ABNORMAL ASSOCIATES GLUCOSE 7823 EDEMA 09-26-2014 [facility] PH[facility]ICI[facility] [place] 7804 DIZZINESS 07-17-2014 [facility] GIDDINESS SERVICE 7840 HEADACHE 07-17-2014 [facility] 99700 OTHER 07-17-2014 [facility] [place] [address] CHEST PAIN 07-17-2014 [facility] UNSPECIFIED [facility] 14924 NAUSEA WITH 07-17-2014 [facility] VOMITING AMBULANCE SERVICE 37581 HORDEOLUM 06-01-2013 LAZARO Quinn INTERNUM 6083 CELLULITIS 06-01-2013 COM[facility]ED AND ABSCESS PHYSICIANS OF ORAL LA SOFT TISSUES 3598 CELLULITIS 05-31-2013 LAZARO Quinn AND ABSCESS OF [...] 46 RT ZA 89 17 17 63 [place] 0 46 PH IN AR E MA [...] DOS [place] [address] COMBINED COMBINED THYROID 6 PHYSICIAN PHYSICIAN STIMULATI [place] [address] COMBINED COMBINED THYROID 6 PHYSICIAN PHYSICIAN STIMULATI S LA S LA NG HORMONE TSH RADIOLOGI 91111 [place] SH[facility] C 5 MEDICAL YUE EXAMINATI IMAGING ON KNEE 3 ASS VIEWS COMPREHEN 13405 COMBINED COMBINED SIVE 5 PHYSICIAN PHYSICIAN METABOLIC S LA S LA PANEL AMB A0427 [facility] SERVICE 5 AMBULANCE AMBULANCE ALS SERVICE SERVICE EMERGENCY TRAN[place] [address] [facility] [facility] HEAD/BRAI 5 MEDICAL YUE N W/O IMAGING CONTRAST ASS MATERIAL RADIOLOGI 05556 [place] [facility] C 5 MEDICAL YUE EXAMINATI IMAGING ON CHEST ASS SINGLE VIEW FRONTAL GROUND A0425 [facility] MILEAGE 5 AMBULANCE AMBULANCE PER SERVICE SERVICE STATUTE MILE COMPREHEN 42267 COMBINED COMBINED SIVE 5 PHYSICIAN PHYSICIAN [place] [address] COMBINED COMBINED FREE 5 PHYSICIAN PHYSICIAN THYROXINE S LA S LA CUL BACT 26930 COMBINED COMBINED XCPT 4 PHYSICIAN PHYSICIAN URINE S LA S LA BLOOD/STO OL AEROBIC ISOL SCREENING 38644 LAZARO Hickey TEST 4 G G VISUAL ACUITY QUANTITAT DANE BILAT Encounters Encounter Start End Date Code Location Performer Type Date OFFICE 77115 FAMILY LAZARO CARDENAS 5 5 CARE DANIELLE T VISIT ASSOCIATE 15 S MINUTES OFFICE 26958 LAZARO Hickey OUTPATIEN 4 4 G G T VISIT 10 MINUTES OFFICE 14957 LAZARO Hickey OUTPATIEN 4 4 G G T VISIT 15 MINUTES
--- OUTSIDE RECORDS SUMMARY | 2017-01-09 22:33 | External Medical Summary Rpt ---
Author Author , MALIA Sterling MALIA Address Unknown Phone [email or web address] Care Team Providers Care Vehicle Fare Collector Name Role Phone [facility] Unavailable Unavailable [...] CARE Unavailable Unavailable ASSOCIATES, [facility] Unavailable Unavailable IMAGING ASS, [facility] Purpose Continuity of Care Document - 05-31-2013 through 2016 Problems Code Diagnosis DOS Provider Status E039 HYPOTHYROID 08-04-2015 COMBINED ISM PHYSICIANS UNSPECIFIED LA [id number] PAIN IN 03-27-2015 [facility] [facility] [id number] UNS INJURY 03-27-2015 [place] RT LOWER MEDICAL LEG INITIAL IMAGING ASS ENCOUNTER 2449 UNSPECIFIED 10-20-2014 [facility] HYPOTHYROID ISM 02276 OVERWEIGHT 10-20-2014 [facility] 47747 OTHER 10-20-2014 [facility] ABNORMAL ASSOCIATES GLUCOSE 7823 EDEMA 09-26-2014 [facility] PHYSICI[facility] [place] 7804 DIZZINESS 07-17-2014 [facility] GIDDINESS SERVICE 7840 HEADACHE 07-17-2014 [facility] 69713 OTHER 07-17-2014 [place] [facility] [place] [address] CHEST PAIN 07-17-2014 [place] UNSPECIFIED [facility] 99068 NAUSEA WITH 07-17-2014 [facility]ANCE SERVICE 37607 HORDEOLUM 06-01-2013 LAZARO Quinn INTERNUM 5283 CELLULITIS 06-01-2013 COM[facility] AND ABSCESS PHYSICIANS OF ORAL LA SOFT TISSUES 6092 CELLULITIS 05-31-2013 LAZARO Quinn AND ABSCESS OF [...] DOS [place] [address] COMBINED COMBINED THYROID 6 PHYSICIAN PHYSICIAN STIMULATI [place] [address] COMBINED COMBINED THYROID 6 PHYSICIAN PHYSICIAN STIMULATI S LA S LA NG HORMONE TSH RADIOLOGI [address]96 [place] [address] MEDICAL YUE EXAMINATI IMAGING ON KNEE 3 ASS VIEWS COMPREHEN 69087 COMBINED COMBINED SIVE 5 PHYSICIAN PHYSICIAN METABOLIC S LA S LA PANEL AMB A0427 [facility] SERVICE 5 AMBULANCE AMBULANCE ALS SERVICE SERVICE [place]ERGENCY [place] [address] [place] [address] [facility] HEAD/BRAI 5 MEDICAL YUE N W/O IMAGING CONTRAST ASS MATERIAL RADIOLOGI 99116 [facility] HAQUE C 5 MEDICAL YUE EXAMINATI IMAGING ON CHEST ASS SINGLE VIEW FRONTAL GROUND A0425 [facility]ANCE AMBULANCE PER [place] [address] COMBINED COMBINED FREE 5 PHYSICIAN PHYSICIAN THYROXINE S LA S LA COMPREHEN 80244 COMBINED COMBINED SIVE 5 PHYSICIAN PHYSICIAN METABOLIC S LA S LA PANEL CUL BACT 60254 COMBINED COMBINED XCPT 4 PHYSICIAN PHYSICIAN URINE S LA S LA BLOOD/STO OL AEROBIC ISOL SCREENING 93034 LAZARO Hickey TEST 4 G G VISUAL ACUITY QUANTITAT DANE BILAT Encounters Encounter Start End Date Code Location Performer Type Date OFFICE 59270 FAMILY LAZARO CARDENAS 5 5 CARE DANIELLE T VISIT ASSOCIATE 15 S MINUTES OFFICE 88425 LAZARO CARDENAS 4 4 G G T VISIT 10 MINUTES OFFICE 29087 LAZARO CARDENAS 4 4 G G T VISIT 15 MINUTES
--- OUTSIDE RECORDS SUMMARY | 2017-01-09 22:33 | External Medical Summary Rpt ---
Demographics Preferred Language Swedish Marital Status Unknown Sabianist Affiliation Unknown Race Unknown Ethnic Group Unknown Author Author MALIA Address Unknown Phone Immunization No patient found.
--- OUTSIDE RECORDS SUMMARY | 2017-01-09 22:33 | External Medical Summary Rpt ---
Demographics Preferred Language Serbian Marital Status Unknown Jew Affiliation Unknown Race Unknown Ethnic Group Unknown Author Author MALIA Address Unknown Phone Immunization No patient found.
--- OUTSIDE RECORDS SUMMARY | 2017-01-09 22:33 | External Medical Summary Rpt ---
Author Author , MALIA Sterling MALIA Address Unknown Phone [email or web address] Care Team Providers Care Aircraft Engineer Name Role Phone [facility] Unavailable Unavailable [...] CARE Unavailable Unavailable ASSOCIATES, [facility] Unavailable Unavailable IMAGING ASS, [facility] Purpose Continuity of Care Document - 05-31-2013 through 2016 Problems Code Diagnosis DOS Provider Status E039 HYPOTHYROID 08-04-2015 [facility] PHYSICIANS UNSPECIFIED LA Q11681 PAIN IN 03-27-2015 [place] [facility] [id number] UNS INJURY 03-27-2015 [place] RT LOWER MEDICAL LEG INITIAL IMAGING ASS ENCOUNTER 2449 UNSPECIFIED 10-20-2014 [facility] HYPOTHYROID ISM 69971 OVERWEIGHT 10-20-2014 [facility] 83338 OTHER 10-20-2014 [facility] ABNORMAL ASSOCIATES GLUCOSE 7823 EDEMA 09-26-2014 [facility] [place] 7804 DIZZINESS 07-17-2014 [facility] GIDDINESS SERVICE 7840 HEADACHE 07-17-2014 [facility] 22912 OTHER 07-17-2014 [place] [facility] [place] [address] CHEST PAIN 07-17-2014 [place] UNSPECIFIED [facility] 59035 NAUSEA WITH 07-17-2014 [facility]ANCE SERVICE 18981 HORDEOLUM 06-01-2013 LAZARO Quinn INTERNUM 5283 CELLULITIS 06-01-2013 COM[facility] AND ABSCESS PHYSICIANS OF ORAL LA SOFT TISSUES 7206 CELLULITIS 05-31-2013 LAZARO Quinn AND ABSCESS OF [...] LE 00 03 04 30 30 00 [place] Ac VO 78 -1 -1 .0 00 L- ti TH 15 1- 4- 00 07 MA ve YR 18 20 20 44 RT OX 99 17 17 02 IN 2 50 PH E AR 20 MA 0 CY MC G #5 TA 91 BL ET CY 68 01 02 10 10 00 [place] Ac CL 64 -2 -2 .0 00 L- ti OB 50 3- 4- 00 07 MA ve EN 51 20 20 46 RT ZA 89 17 17 63 [place] 0 46 PH IN AR E MA 10 CY MG #5 91 TA BL ET IB 68 01 02 40 10 00 [place] Ac UP 64 -2 -2 .0 00 L- ti RO 50 3- 4- 00 07 MA ve FE 53 20 20 46 RT N 05 17 17 63 60 9 52 PH 0 AR MG MA CY TA BL #5 ET 91 LE 00 01 02 30 30 00 [place] Ac VO 78 -1 -1 .0 00 L- ti TH 15 8- 7- 00 07 MA ve YR 18 20 20 44 RT OX 99 17 17 02 IN 2 50 PH E AR 20 MA 0 CY MC G #5 TA 91 BL ET HY 00 12 01 [address] 37 -2 -2 .0 00 L- ti OC 80 0- 0- 00 07 MA ve HL 81 20 20 45 RT OR 00 16 17 96 OT 5 31 PH HI AR AZ MA ID CY E 12 #5 .5 91 MG CP Procedures Procedure DOS [place] [address] COMBINED COMBINED THYROID 6 PHYSICIAN PHYSICIAN STIMULATI [place] [address] COMBINED COMBINED THYROID 6 PHYSICIAN PHYSICIAN STIMULATI S LA S LA NG HORMONE TSH RADIOLOGI [address] [place] [address] MEDICAL YUE EXAMINATI IMAGING ON KNEE 3 ASS VIEWS COMPREHEN 17644 COMBINED COMBINED SIVE 5 PHYSICIAN PHYSICIAN METABOLIC S LA S LA PANEL AMB A0427 [facility] SERVICE 5 AMBULANCE AMBULANCE ALS SERVICE SERVICE [place]ENC[place] [address] [facility] HAQUE HEAD/BRAI 5 MEDICAL YUE N W/O IMAGING CONTRAST ASS MATERIAL RADIOLOGI 98053 [facility] HAQUE C 5 MEDICAL YUE EXAMINATI IMAGING ON CHEST ASS SINGLE VIEW FRONTAL GROUND A0425 [facility] AM[facility]ULANCE PER [place] [address] COMBINED COMBINED FREE 5 PHYSICIAN PHYSICIAN THYROXINE S LA S LA COMPREHEN 19740 COMBINED COMBINED SIVE 5 PHYSICIAN PHYSICIAN METABOLIC S LA S LA PANEL CUL BACT 39581 COMBINED COMBINED XCPT 4 PHYSICIAN PHYSICIAN URINE S LA S LA BLOOD/STO OL AEROBIC ISOL SCREENING 24810 LAZARO Hickey TEST 4 G G VISUAL ACUITY QUANTITAT DANE BILAT Encounters Encounter Start End Date Code Location Performer Type Date OFFICE 86200 FAMILY LAZARO CARDENAS 5 5 CARE DANIELLE T VISIT ASSOCIATE 15 S MINUTES OFFICE 29140 LAZARO CARDENAS 4 4 G G T VISIT 10 MINUTES OFFICE 42252 LAZARO CARDENAS 4 4 G G T VISIT 15 MINUTES
== END 2016-12-02 03:40 | disposition short-term general hospital (02) ==
LOC: ER 22:21 → 2ND 12-02 00:43
PROVIDERS: Emergency Medicine
DX: R55 Syncope and collapse (principal); I10 Essential (primary) hypertension; Z72.0 Tobacco use; G81.94 Hemiplegia, unspecified affecting left nondominant side; I63.9 Cerebral infarction, unspecified; R29.711 NIHSS score 11
CPT/HCPCS: G0378; J2310; J2997

== ENCOUNTER → 2016-12-30 | Outpatient (CLI) | payer OTHER ==
[~2016-12-30] MED LIST changes: +METFORMIN 500M500 M1 PO
[2016-12-30 14:54] LABS: HEMOGLOBIN 11.4 g/dL (12.2-16.2); LYMPH # 1.7 K/mm3 (0.7-4.5); LYMPH % 27.6 % (10-50.0)
[2016-12-30 15:52] LABS: BUN 11 mg/dL (7-18)
[2016-12-30 17:30] LABS: GFR (ESTIMATED) 109 ML/MIN (59-)
== END ==
LOC: LAB 14:28
PROVIDERS: Nurse Practitioner Family
DX: R53.83 Other fatigue (principal); E55.9 Vitamin D deficiency, unspecified; Z79.899 Other long term (current) drug therapy